=== PATIENT | male | born 1995 | race Caucasian/White ===

== ENCOUNTER 2018-04-30 20:09 | Emergency (ER) | payer MEDICAID ==
[~2018-04-30] VITALS: Ht 180.3 cm; Wt 75.0 kg
[2018-04-30] MEDS ORDERED: ONDANSETRON HCL 4 MG TABLET PO ONE (21:15)
[2018-04-30] MEDS ORDERED: ACETAMINOPHEN 500 MG TABLET PO ONE (21:15)
[2018-04-30] MEDS ORDERED: IBUPROFEN 600 MG TABLET PO ONE (21:15)
[2018-04-30 22:18] LABS: INFLUENZA TYPE A POSITIVE FOR TYPE A (NEGATIVE); INFLUENZA TYPE B NEGATIVE FOR TYPE B (NEGATIVE)
[2018-04-30] MEDS ORDERED: OSELTAMIVIR PHOSPHATE 75 MG CAPSULE PO ONE (22:30)
[2018-04-30 22:39] VITALS: BP 124/65
== END 2018-04-30 22:49 | disposition home or self-care (01) ==
LOC: EMS 20:10
DX: J09.X2 Influenza due to identified novel influenza A virus with other respiratory manifestations (principal); F17.210 Nicotine dependence, cigarettes, uncomplicated
CPT/HCPCS: 87804; 99284; Q0162